=== PATIENT | male | born 1950 | race Caucasian/White ===

== ENCOUNTER 2017-02-01 07:54 | Day surgery (SDC) | payer BC ==
[2017-01-28 08:43] VITALS: BMI 33.7
[~2017-02-01 07:54] MED LIST: LACTATED RINGERS 1,000 ML IV SCH; LIDOCAINE 1% 20 ML VIAL (10MG/ML) FOR IV START INTRADERMA PRN
[2017-02-01] MEDS ORDERED: LACTATED RINGERS 1,000 ML IV ONE (08:04)
[2017-02-01 08:08] VITALS: TEMP 97
[2017-02-01] MEDS ORDERED: PROPOFOL 10 MG/ML 20 ML VIAL IV ONE (08:12)
[2017-02-01] MEDS ORDERED: LIDOCAINE 1% INJ 10MG/ML (20 ML MDV) ONE (08:12)
--- NOTE | 2017-02-01 08:39 | P.PCN ---
Date of Procedure: 02/01/17 Preoperative Diagnosis: Patient history of colon polyps status post cecal resection Postoperative Diagnosis: Small polypoid lesion at the area of the anastomosis, prominent sigmoid diverticuli, internal hemorrhoids, anterior skin tag Procedure(s) Performed: Colonoscopy, snare polypectomy Anesthesia: MAC Surgeon: Estelle Medina Estimated Blood Loss (ml): 0 IV fluids (ml): 400 Pathology: other (Anastomotic polyp) Condition: stable Disposition: PACU Indications for Procedure: Patient history of colon polyps Operative Findings: Small polypoid change at anastomosis, sigmoid diverticuli, internal hemorrhoids , anterior rectal skin tag Description of Procedure: The patient was taken to the endoscopy suite and following sedation rectal exam was performed. Patient was noted to have an prominent anterior skin tag no masses. Colonoscope was passed through the anus into the rectum was passed into the sigmoid colon up to the splenic flexure transverse colon, to what was believed to be near the hepatic flexure and very close to this area was the anastomosis. The anastomosis was clearly evaluated there was a small polypoid change at the anastomosis this was removed with snare polypectomy. Following this the scope was carefully withdrawn no other mucosal lesions of concern were identified in the remainder of the colon. This was brought back to the transverse colon left colon sigmoid colon down to the area of the rectum. The patient was noted to have sigmoid diverticuli. The scope was brought down into the rectum where it was retroflexed internal hemorrhoids identified. Approximately 6 minutes were taken to withdraw the scope from the area of the anastomosis to the cecum. Impression/plan: 1. Anastomotic polyp removed with snare polypectomy 2. Cecal diverticuli 3. Internal hemorrhoids 4. Anterior perianal skin tag Plan: 1. Await results of biopsy 2. Conservative management of diverticuli and hemorrhoids
--- NOTE | 2017-02-01 08:40 | P.DS ---
Providers Attending physician: Estelle Medina Primary care physician: Maico Smart Plan - Discharge Summary Discharge Medication List Aspirin 81 mg PO DAILY 09/16/14 [History] Follow up Appointment(s)/Referral(s): Estelle Medina MD [STAFF PHYSICIAN] - 1 Week Activity/Diet/Wound Care/Special Instructions: Do not drive today Discharge Disposition: HOME SELF-CARE
[2017-02-01 08:47] VITALS: RESP 16
[2017-02-01 09:11] VITALS: BP 130/75; PULSE 72
== END 2017-02-01 09:24 | disposition home or self-care (01) ==
LOC: ORWHC2ENDO 07:54
PROVIDERS: ATTEND Surgery
DX: Z12.11 Encounter for screening for malignant neoplasm of colon (principal); D12.6 Benign neoplasm of colon, unspecified; Z86.010 Personal history of colon polyps; K64.8 Other hemorrhoids; K64.4 Residual hemorrhoidal skin tags; K57.30 Diverticulosis of large intestine without perforation or abscess without bleeding; Z98.0 Intestinal bypass and anastomosis status; Z79.82 Long term (current) use of aspirin
CPT/HCPCS: 88305; 45385; J2001; J2704

== ENCOUNTER 2022-09-08 07:43 | Day surgery (SDC) | payer BC ==
--- NOTE | 2022-09-08 07:34 | P.GSHP ---
History of Present Illness H&P Date: 09/08/22 CHIEF COMPLAINT: Colon screen HISTORY OF PRESENT ILLNESS: The patient is a 71-year-old male who presents for colon screen. Lower endoscopy was offered for further evaluation and management. PAST MEDICAL HISTORY: Please see list. PAST SURGICAL HISTORY: Please see list. MEDICATIONS: Please see list. ALLERGIES: Please see list. SOCIAL HISTORY: No illicit drug use FAMILY HISTORY: No reports of Crohn disease or ulcerative colitis. REVIEW OF ORGAN SYSTEMS: CONSTITUTIONAL: No reports of fevers or chills. PHYSICAL EXAM: VITAL SIGNS: Stable GENERAL: Well-developed pleasant in no acute distress. HEENT: No scleral icterus. Extraocular movements grossly intact. Moist buccal mucosa. NECK: Supple without lymphadenopathy. CHEST: Unlabored respirations. Equal bilateral excursions. CARDIOVASCULAR: Regular rate and rhythm. Distal 2+ pulses. ABDOMEN: Soft, nontender, nondistended. MUSCULOSKELETAL: No clubbing, cyanosis, or edema. ASSESSMENT: 1. Colon screen. PLAN: 1. Recommend proceeding with a lower endoscopy Past Medical History Additional Past Medical History / Comment(s): HX OF COLON POLYPS History of Any Multi-Drug Resistant Organisms: None Reported Past Surgical History: Bowel Resection Additional Past Surgical History / Comment(s): colonoscopies, cecum removed 2012 Past Anesthesia/Blood Transfusion Reactions: No Reported Reaction Smoking Status: Former smoker - Past Family History Mother Family Medical History: No Reported History Medications and Allergies Home Medications Medication Instructions Recorded Confirmed Type Aspirin 81 mg PO DAILY 09/16/14 09/07/22 History Allergies Allergy/AdvReac Type Severity Reaction Status Date / Time No Known Allergies Allergy Verified 09/07/22 11:11
[~2022-09-08 07:43] MED LIST changes: -LIDOCAINE 1% 20 ML VIAL (10MG/ML) FOR IV START INTRADERMA PRN
[2022-09-08] MEDS ORDERED: LACTATED RINGERS 1,000 ML IV ONE (08:15)
[2022-09-08 08:25] VITALS: RESP 16; TEMP 97.5
[2022-09-08] MEDS ORDERED: PROPOFOL 10 MG/ML 20 ML VIAL IV ONE (08:45)
[2022-09-08] MEDS ORDERED: LIDOCAINE 2% INJ 20 MG/ML (2 ML VIAL) ONE (08:45)
[2022-09-08 09:52] VITALS: BP 154/93; PULSE 70
--- NOTE | 2022-09-08 10:04 | P.PCN ---
Date of Procedure: 09/08/22 Description of Procedure: PREOPERATIVE DIAGNOSIS: Personal history of colon polyps POSTOPERATIVE DIAGNOSIS: Tubular adenoma hepatic flexure Tubular adenoma transverse colon Tubular adenoma sigmoid colon Tubular adenoma descending colon Tubular adenoma ascending colon Sigmoid diverticulosis Internal hemorrhoids, grade 2 Hepatic flexure adenoma, unresectable OPERATION: Colonoscopy to the ileocecal valve and appendiceal orifice, cecum Colonoscopy with hot snare polypectomy Colonoscopy with injection of Christal ink, 5 mL, hepatic flexure SURGEON: Neeta Pearson MD. ANESTHESIA: MAC. INDICATIONS: The patient is an 71-year-old male who presents personal history of colon polyps. Last colonoscopy 5 years. Benefits and risks were described and informed consent was obtained. DESCRIPTION OF PROCEDURE: The patient had undergone Sutab prep. The patient had been brought into the operating room and laid in the left lateral decubitus position. After adequate intravenous sedation, the rectum was examined with 2% lidocaine jelly. The prostate was unremarkable. External hemorrhoids were encountered. The rectal tone was within normal limits. No lesions were palpated in the rectal vault. An Olympus colonoscope was advanced until the cecum, ileocecal valve and appendiceal orifice were clearly viewed. The prep was good. Sigmoid diverticulosis was encountered. Colonic polyps were found and removed. No evidence of focal colitis was found. Retroflexion of the scope demonstrated grade 3 internal hemorrhoids without active bleeding or inflammation. The colon was desufflated. The patient had tolerated the procedure well. Withdrawal time was over 6 minutes. FINDINGS: Aronchick preparation quality scale 2 (1-5) Internal hemorrhoids, grade 3 External hemorrhoids, grade 3. No arteriovenous malformations. Sigmoid diverticulosis Injection Christal ink at hepatic flexure, 5 mL, 3 cm adenoma, unresectable Removal of 12 polyps: - Snare polypectomy 15 cm from the anal verge, 5 mm tubulovillous adenoma polyp, sigmoid colon - Snare polypectomy 25 cm from the anal verge, 13 mm flat villous adenoma polyp, sigmoid colon - Snare polypectomy 50 cm from the anal verge, 12 mm flat villous adenoma polyp, descending colon - Snare polypectomy 60 cm from the anal verge, 8 mm polyp, descending colon - Snare polypectomy at proximal transverse x 2, 5 to 6 mm polyp. - Snare polypectomy at mid transverse colon 4, 4 to 10 mm polyp. - Snare polypectomy at ascending colon, 8 mm polyp. - Snare polypectomy at hepatic flexure, piecemeal resection, incomplete, 30 mm tumor No focal colitis. RECOMMENDATIONS: Recommend surgical resection, hepatic flexure Plan - Discharge Summary Discharge Rx Participant: No New Discharge Prescriptions: Continue Aspirin 81 mg PO DAILY Discharge Medication List Aspirin 81 mg PO DAILY 09/16/14 [History] Follow up Appointment(s)/Referral(s): Neeta Pearson MD [STAFF PHYSICIAN] - 09/21/22 Patient Instructions/Handouts: *Surgery [facility] - (Anesthesia) Endoscopy Discharge Instructions, Colorectal Polyps (GEN), Colonoscopy (DC) Activity/Diet/Wound Care/Special Instructions: Follow up in surgical office Discharge Disposition: HOME SELF-CARE
== END 2022-09-08 10:28 | disposition home or self-care (01) ==
LOC: ORWHC2ENDO 07:43
PROVIDERS: ATTEND Surgery Plastic and Reconstructive Surgery
DX: Z12.11 Encounter for screening for malignant neoplasm of colon (principal); D12.2 Benign neoplasm of ascending colon; D12.3 Benign neoplasm of transverse colon; D12.4 Benign neoplasm of descending colon; D12.5 Benign neoplasm of sigmoid colon; K57.30 Diverticulosis of large intestine without perforation or abscess without bleeding; K64.8 Other hemorrhoids; Z79.82 Long term (current) use of aspirin; Z87.891 Personal history of nicotine dependence; Z87.19 Personal history of other diseases of the digestive system
CPT/HCPCS: 88305; 45385; 45381; J2704; J2001

== ENCOUNTER → 2023-03-09 | Day surgery (SDC) | payer BC ==
[2023-03-04 12:41] VITALS: BMI 34.1
[~2023-03-09] MED LIST changes: +LIDOCAINE 1% (10MG/ML) FOR IV START INTRADERMA PRN; +ONDANSETRON 4 MG/2 ML VIAL IVP PRN; +PROPOFOL 10 MG/ML 20 ML VIAL IV ONE
--- NOTE | 2023-03-09 07:39 | P.GSHP ---
History of Present Illness H&P Date: 03/09/23 CHIEF COMPLAINT: Colon screen HISTORY OF PRESENT ILLNESS: The patient is a 72-year-old male who presents for colon screen. Lower endoscopy was offered for further evaluation and management. PAST MEDICAL HISTORY: Please see list. PAST SURGICAL HISTORY: Please see list. MEDICATIONS: Please see list. ALLERGIES: Please see list. SOCIAL HISTORY: No illicit drug use FAMILY HISTORY: No reports of Crohn disease or ulcerative colitis. REVIEW OF ORGAN SYSTEMS: CONSTITUTIONAL: No reports of fevers or chills. PHYSICAL EXAM: VITAL SIGNS: Stable GENERAL: Well-developed pleasant in no acute distress. HEENT: No scleral icterus. Extraocular movements grossly intact. Moist buccal mucosa. NECK: Supple without lymphadenopathy. CHEST: Unlabored respirations. Equal bilateral excursions. CARDIOVASCULAR: Regular rate and rhythm. Distal 2+ pulses. ABDOMEN: Soft, nontender, nondistended. MUSCULOSKELETAL: No clubbing, cyanosis, or edema. ASSESSMENT: 1. Colon screen. PLAN: 1. Recommend proceeding with a lower endoscopy Past Medical History Additional Past Medical History / Comment(s): HX OF COLON POLYPS History of Any Multi-Drug Resistant Organisms: None Reported Past Surgical History: Bowel Resection Additional Past Surgical History / Comment(s): colonoscopies, cecum removed 2012 Past Anesthesia/Blood Transfusion Reactions: No Reported Reaction Past Psychological History: No Psychological Hx Reported Smoking Status: Former smoker Past Alcohol Use History: None Reported Additional Past Alcohol Use History / Comment(s): quit smoking 1978, smoked <10 yrs. Past Drug Use History: None Reported - Past Family History Mother Family Medical History: No Reported History Medications and Allergies Home Medications Medication Instructions Recorded Confirmed Type Aspirin 81 mg PO HS 09/16/14 03/04/23 History Allergies Allergy/AdvReac Type Severity Reaction Status Date / Time No Known Allergies Allergy Verified 03/04/23 12:36
[2023-03-09 09:11] VITALS: TEMP 97
[2023-03-09 10:09] VITALS: RESP 15
[2023-03-09 10:27] VITALS: BP 162/97; PULSE 68
--- NOTE | 2023-03-09 10:28 | P.PCN ---
Date of Procedure: 03/09/23 Description of Procedure: PREOPERATIVE DIAGNOSIS: Right hemicolectomy due to adenoma Personal history of colon polyps Large adenoma, hepatic flexure POSTOPERATIVE DIAGNOSIS: Tubular adenoma hepatic flexure Tubular adenoma transverse colon Tubular adenoma descending colon Tubular adenoma ascending colon Sigmoid diverticulosis Internal hemorrhoids, grade 2 Hepatic flexure adenoma, unresectable OPERATION: Colonoscopy to the ileocecal valve and appendiceal orifice, cecum Colonoscopy with hot snare polypectomy Colonoscopy with injection of Christal ink, 4 mL, hepatic flexure SURGEON: Neeta Pearson MD. ANESTHESIA: MAC. INDICATIONS: The patient is an 72-year-old male who presents personal history of colon polyps. He had prior colon resection, right hemicolectomy. Benefits and risks were described and informed consent was obtained. DESCRIPTION OF PROCEDURE: The patient had undergone MiraLAX Gatorade. The patient had been brought into the operating room and laid in the left lateral decubitus position. After adequate intravenous sedation, the rectum was examined with 2% lidocaine jelly. The prostate was unremarkable. External hemorrhoids were encountered. The rectal tone was within normal limits. No lesions were palpated in the rectal vault. An Olympus colonoscope was advanced until the cecum, ileocecal valve and appendiceal orifice were clearly viewed. The prep was good. Sigmoid diverticulosis was encountered. Colonic polyps were found and removed. No evidence of focal colitis was found. Retroflexion of the scope demonstrated grade 3 internal hemorrhoids without active bleeding or inflammation. The colon was desufflated. The patient had tolerated the procedure well. Withdrawal time was over 6 minutes. FINDINGS: Aronchick preparation quality scale 2 (1-5) Internal hemorrhoids, grade 3 External hemorrhoids, grade 3. No arteriovenous malformations. Sigmoid diverticulosis Injection Christal ink at hepatic flexure, 4 mL, flat 2 cm adenoma, unresectable Removal of 7 polyps: - Snare polypectomy anastomosis, 5 mm tubulovillous adenoma of right hemicolectomy - Snare polypectomy transverse colon 4, 4-6 mm flat villous adenoma - Snare polypectomy descending colon, 5 mm flat villous adenoma - Snare polypectomy at hepatic flexure, piecemeal resection, incomplete, 20 mm tumor No focal colitis. RECOMMENDATIONS: Recommend surgical resection, hepatic flexure Plan - Discharge Summary Discharge Rx Participant: No New Discharge Prescriptions: Continue Aspirin 81 mg PO HS Discharge Medication List Aspirin 81 mg PO HS 11/03/14 [History] Follow up Appointment(s)/Referral(s): Neeta Pearson MD [STAFF PHYSICIAN] - 03/22/23 3:45 pm Patient Instructions/Handouts: Diverticulosis (DC), Colorectal Polyps (GEN), Diverticulosis Diet (GEN) Activity/Diet/Wound Care/Special Instructions: Repeat colonoscopy 1 year, 2023. Recommend colon resection Discharge Disposition: HOME SELF-CARE
[2023-03-09 12:49] LABS: ALT 47 U/L (4-49); AST 37 U/L (17-59); Alkaline Phosphatase 100 U/L (38-126); Anion Gap 8 mmol/L; Calcium 8.7 mg/dL (8.4-10.2); Carbon Dioxide 31 mmol/L (22-30); Chloride 102 mmol/L (98-107); Glucose 101 mg/dL (74-99); Potassium 4.7 mmol/L (3.5-5.1); Sodium 141 mmol/L (137-145); Total Bilirubin 1.5 mg/dL (0.2-1.3)
[2023-03-09 12:52] LABS: African American GFR (CKD) >90 (>60 ml/min/1.73 sqM); Albumin 4.2 g/dL (3.5-5.0); Blood Urea Nitrogen 14 mg/dL (9-20); Non-African American GFR(CKD) >90 (>60 ml/min/1.73 sqM); Total Protein 6.8 g/dL (6.3-8.2)
[2023-03-09 13:14] LABS: Basophils % (A) 0 %; Eosinophils # (A) 0.2 k/uL (0-0.7); Eosinophils % (A) 3 %; HCT 47.3 % (39.0-53.0); HGB 16.2 gm/dL (13.0-17.5); Lymphocytes # (A) 1.5 k/uL (1.0-4.8); Lymphocytes % (A) 24 %; MCH 31.8 pg (25.0-35.0); MCHC 34.4 g/dL (31.0-37.0); MCV 92.4 fL (80.0-100.0); Mean Platelet Volume 8.1; Monocytes # (A) 0.3 k/uL (0-1.0); Monocytes % (A) 5 %; Neutrophils # (A) 4.2 k/uL (1.3-7.7); Neutrophils % (A) 66 %; Platelet Count 216 k/uL (150-450); RBC 5.11 m/uL (4.30-5.90); RDW 13.6 % (11.5-15.5); WBC 6.4 k/uL (3.8-10.6)
== END | disposition home or self-care (01) ==
LOC: ORWHC2ENDO 08:42
PROVIDERS: ATTEND Surgery Plastic and Reconstructive Surgery
DX: Z12.11 Encounter for screening for malignant neoplasm of colon (principal); D12.3 Benign neoplasm of transverse colon; D12.4 Benign neoplasm of descending colon; Z90.49 Acquired absence of other specified parts of digestive tract; K57.30 Diverticulosis of large intestine without perforation or abscess without bleeding; K64.2 Third degree hemorrhoids; K64.4 Residual hemorrhoidal skin tags; Z79.82 Long term (current) use of aspirin; Z98.0 Intestinal bypass and anastomosis status; Z87.891 Personal history of nicotine dependence
CPT/HCPCS: 45385; 45381; 88305; 80053; 85025; J2704; 44404; 45380

== ENCOUNTER → 2023-03-29 | Outpatient (CLI) | payer BC | END | disposition home or self-care (01) | LOC: LABPAT 15:48 | PROVIDERS: ATTEND Surgery Plastic and Reconstructive Surgery | DX: Z53.9 Procedure and treatment not carried out, unspecified reason (principal) ==

== ENCOUNTER 2023-04-01 05:48 | Inpatient (IN) | payer BC, MEDICARE ==
[2023-03-29 08:56] VITALS: BMI 32.7
--- NOTE | 2023-03-31 18:52 | P.PN ---
Progress Note - Text Progress Note Date: 03/31/23 Patient contacted regarding his prep. He does report vomiting his first dose. He is taken his antibiotics for Plata prep. Recommend oral hydration. Options of pain management including abdominal block described. Patient is aware what time he is to come in tomorrow. All questions addressed.
--- NOTE | 2023-04-01 05:11 | P.GSHP ---
History of Present Illness H&P Date: 04/01/23 CHIEF COMPLAINT: History of sigmoid volvulus HISTORY OF PRESENT ILLNESS: The patient is a 72-year-old male who presents with unresectable adenoma of the hepatic flexure/right colon after several attempts via endoscopy in the 9 months. He completed a colonoscopy demonstrating neoplasm. Now he presents for right mark-colectomy resection. PAST MEDICAL HISTORY: Please see list. PAST SURGICAL HISTORY: Please see list. MEDICATIONS: Please see list. ALLERGIES: Please see list. SOCIAL HISTORY: No illicit drug use FAMILY HISTORY: No reports of Crohn disease or ulcerative colitis. REVIEW OF ORGAN SYSTEMS: CONSTITUTIONAL: Denies any fever or chills. HEENT: Denies any trouble with vision or nosebleeds. No difficulty swallowing. LYMPHATIC: The patient denies any lumps and bumps around the neck. ENDOCRINE: Denies any thyroid disorders. Has blood sugar glucose intolerance. RESPIRATORY: Denies pneumonia. Denies any troubles with breathing or dyspnea on exertion. CARDIOVASCULAR: Denies any chest pain, palpitations, or recent heart attacks. EKG normal. GASTROINTESTINAL: Denies constipation. GENITOURINARY: Has increased urinary frequency. MUSCULOSKELETAL: Denies back pain, stiffness, joint arthritis. NEUROLOGIC: Denies any numbness or tingling along the distal extremities. No seizure disorders or headaches. PSYCHIATRIC: Denies depression or suidical ideation. HEMATOLOGIC: Denies any abnormal bleeding or bruising. PHYSICAL EXAM: VITAL SIGNS: Stable GENERAL: Well-developed pleasant in no acute distress. HEENT: No scleral icterus. Extraocular movements grossly intact. Moist buccal mucosa. NECK: Supple without lymphadenopathy. CHEST: Unlabored respirations. Equal bilateral excursions. CARDIOVASCULAR: Regular rate and rhythm. Distal 2+ pulses. ABDOMEN: Soft, nontender, nondistended. MUSCULOSKELETAL: No clubbing, cyanosis, or edema. NERUO: Regular 2-12 grossly intact. PSYCH: Alert and oriented to person place and time. ASSESSMENT: 1. Unresectable colon adenoma, hepatic flexure. PLAN: 1. Benefits and risks of surgical intervention right colectomy reviewed in detail. Robotic-assisted approach was also described. Possibility of open technique described. 2. Enhanced colon recovery program. 3. DVT prophylaxis. 4. Antibiotic prophylaxis. 5. In-patient hospitalization described. Past Medical History Additional Past Medical History / Comment(s): HX OF COLON POLYPS. History of Any Multi-Drug Resistant Organisms: None Reported Past Surgical History: Bowel Resection Additional Past Surgical History / Comment(s): Colonoscopies, cecum removed 2012. Past Anesthesia/Blood Transfusion Reactions: No Reported Reaction Past Psychological History: No Psychological Hx Reported Smoking Status: Former smoker Past Alcohol Use History: None Reported Additional Past Alcohol Use History / Comment(s): Quit smoking in 1978, smoked <10 yrs. Past Drug Use History: None Reported - Past Family History Mother Family Medical History: No Reported History Medications and Allergies Home Medications Medication Instructions Recorded Confirmed Type Aspirin 81 mg PO HS 09/16/14 03/29/23 History Vit C/E/Zn/Coppr/Lutein/Zeaxan 1 each PO DAILY 03/29/23 03/29/23 History [Preservision Areds 2 Softgel] Allergies Allergy/AdvReac Type Severity Reaction Status Date / Time No Known Allergies Allergy Verified 03/29/23 08:45
[~2023-04-01 05:48] MED LIST changes: +ACETAMINOPHEN TAB 500 MG TAB PO PRN; +ALVIMOPAN 12 MG CAPSULE PO PRN; +Antibiotics per Pharmacy 1 EACH MISC MISCELLANE PRN; +HEPARIN SODIUM,PORCINE/PF 5,000 UNIT/0.5 ML SYRINGE SQ PRN; -LACTATED RINGERS 1,000 ML IV SCH; -LIDOCAINE 1% (10MG/ML) FOR IV START INTRADERMA PRN; -PROPOFOL 10 MG/ML 20 ML VIAL IV ONE; +metroNIDAZOLE-NS PMX 500 MG in SALINE 1 100ML.BAG IVPB PRN
[2023-04-01] MEDS ORDERED: MIDAZOLAM 2 MG/2 ML VIAL IV PRN (05:55)
[2023-04-01] MEDS: LACTATED RINGERS 1,000 ML IV SCH (06:40)
[2023-04-01 06:43] LABS: Glucose,Whole Blood 111 mg/dL (70-110)
[2023-04-01] MEDS ORDERED: HYDROmorphone 0.5 MG/0.5 ML SYRINGE IVP PRN (07:00)
[2023-04-01] MEDS ORDERED: MIDAZOLAM 2 MG/2 ML VIAL IVP ONE (07:05)
[2023-04-01] MEDS ORDERED: fentaNYL (PF) 50 MCG/ML 2 ML AMP IVP ONE (07:05)
[2023-04-01 07:08] LABS: Basophils % (A) 0 %; Eosinophils # (A) 0.1 k/uL (0-0.7); Eosinophils % (A) 1 %; HCT 47.1 % (39.0-53.0); HGB 16.5 gm/dL (13.0-17.5); Lymphocytes # (A) 1.4 k/uL (1.0-4.8); Lymphocytes % (A) 18 %; MCHC 35.1 g/dL (31.0-37.0); MCV 91.1 fL (80.0-100.0); Mean Platelet Volume 7.8; Monocytes # (A) 0.5 k/uL (0-1.0); Monocytes % (A) 7 %; Neutrophils # (A) 5.4 k/uL (1.3-7.7); Neutrophils % (A) 71 %; Platelet Count 214 k/uL (150-450); RBC 5.17 m/uL (4.30-5.90); WBC 7.6 k/uL (3.8-10.6)
[2023-04-01] MEDS ORDERED: DEXAMETHASONE SOD PHOSPHATE 4 MG/ML 1 ML VIAL IVP ONE (07:20)
[2023-04-01 07:37] LABS: ALT 32 U/L (4-49); African American GFR (CKD) >90 (>60 ml/min/1.73 sqM); Albumin 4.4 g/dL (3.5-5.0); Anion Gap 14 mmol/L; Blood Urea Nitrogen 20 mg/dL (9-20); Calcium 8.8 mg/dL (8.4-10.2); Carbon Dioxide 25 mmol/L (22-30); Chloride 102 mmol/L (98-107); Glucose 112 mg/dL (74-99); Non-African American GFR(CKD) >90 (>60 ml/min/1.73 sqM); Sodium 141 mmol/L (137-145); Total Bilirubin 1.7 mg/dL (0.2-1.3); Total Protein 7.5 g/dL (6.3-8.2)
[2023-04-01] MEDS ORDERED: LIDOCAINE 2% INJ 20 MG/ML (2 ML VIAL) ONE (07:38)
[2023-04-01] MEDS ORDERED: ROPIVACAINE 5 MG/ML 30 ML VIAL ONE (07:38)
[2023-04-01] MEDS ORDERED: SUCCINYLCHOLINE CHLORIDE 200 MG/10 ML VIAL IV ONE (07:38)
[2023-04-01] MEDS ORDERED: FUROSEMIDE 10 MG/ML 2 ML VIAL ONE (07:38)
[2023-04-01] MEDS ORDERED: NEOSTIGMINE 1 MG/ML 10 ML VIAL ONE (07:38)
[2023-04-01] MEDS ORDERED: KETAMINE 10 MG/ML 20 ML VIAL ONE (07:38)
[2023-04-01] MEDS ORDERED: fentaNYL (PF) 50 MCG/ML 2 ML AMP ONE (07:38)
[2023-04-01] MEDS ORDERED: PROPOFOL 10 MG/ML 20 ML VIAL IV ONE (07:38)
[2023-04-01] MEDS ORDERED: MIDAZOLAM 2 MG/2 ML VIAL ONE (07:38)
[2023-04-01] MEDS ORDERED: GLYCOPYRROLATE 0.2 MG/ML 2 ML VIAL ONE (07:38)
[2023-04-01] MEDS ORDERED: ROCURONIUM 10 MG/ML (5 ML VIAL) IV ONE (07:38)
[2023-04-01] MEDS ORDERED: SODIUM CHLORIDE 0.9% (PF) 10 ML VIAL ONE (07:38)
[2023-04-01] MEDS ORDERED: HYDROmorphone (PF) 1 MG/ML ONE (07:38)
[2023-04-01] MEDS ORDERED: PHENYLEPHRINE-0.9% NACL SYG 1,000 MCG/10 ML SYRINGE ONE (07:38)
[2023-04-01 07:39] LABS: AST 34 U/L (17-59); Alkaline Phosphatase 72 U/L (38-126)
[2023-04-01] MEDS ORDERED: IV FLUID CONTINUATION 1,000 ML IV ONE ×2 (07:43→08:57)
[2023-04-01] MEDS ORDERED: BUPIVACAINE (PF) 0.25% 30 ML VIAL SQ ONE (08:22)
--- NOTE | 2023-04-01 10:15 | P.ANPRN ---
Procedure Note - Anesthesia - Nerve Block Performed Bilateral Erector Spinae Time Out Performed: Yes (07:05) Date of Procedure: 04/01/23 Procedure Start Time: :05 Procedure Stop Time: 07:11 Location of Patient: PreOp Indication: Acute Post-Operative Pain, Requested by Surgeon (Dr Mansfield) Sedation Type: Sedate with meaningful contact maintained Preparation: Sterile Prep Position: Prone Catheter: None Needle Types: Pajunk Needle Gauge: 21 Ultrasound used to visualize needle placement: Yes Ultrasound used to observe medication spread: Yes Injectate: 0.5% Ropivacaine (see comment for volume) (15cc +10cc PF Normal saline each side) Blood Aspirated: No Pain Paresthesia on Injection Noted: No Resistance on Injection: Normal Image Stored and Saved: Yes Events: Uneventful and Well Tolerated
[2023-04-01] MEDS ORDERED: SODIUM CHLORIDE 0.9% 100 ML BAG ONE (12:15)
[2023-04-01] MEDS ORDERED: ceFAZolin 1,000 MG VIAL ONE (12:15)
[2023-04-01] MEDS ORDERED: fentaNYL PCA 500 MCG/50 ML BAG IV PRN (13:26)
[2023-04-01] MEDS ORDERED: NALOXONE 0.4 MG/ML 1 ML VIAL IV PRN (13:26)
[2023-04-01] MEDS ORDERED: ONDANSETRON 4 MG/2 ML VIAL IVP ONE (13:38)
[2023-04-01] MEDS ORDERED: droPERidol 5 MG/2 ML VIAL IVP ONE (13:49)
--- NOTE | 2023-04-01 13:52 | P.OP ---
Date of Procedure: 04/01/23 Description of Procedure: SURGEON: BRITTANY MARADIAGA MD Preoperative Diagnosis: 1. Hepatic flexure unresectable adenoma 2. Obesity due to excess calories, BMI 32.3 3. Prior right colectomy for unresectable adenoma of the cecum Postoperative Diagnosis: 1. Hepatic flexure unresectable adenoma 2. Obesity due to excess calories, BMI 32.3 3. Prior right colectomy for unresectable adenoma of the cecum 4. Abdominal peritoneal adhesions Procedure(s) Performed: 1. Robot-assisted daVinci Xi laparoscopic lysis of adhesions over 1.5 hours 2. Robot-assisted daVinci Xi laparoscopic extended right hemicolectomy 3. Robot-assisted daVinci Xi laparoscopic small bowel resection 2 Anesthesia: GETA, local Estimated Blood Loss (ml): 5 Condition: stable Urine output: 400 mL SPECIMENS REMOVED: 1. Extended right colon en bloc, anastomosis 2. Small bowel resection 2, ileum COMPLICATIONS: None. Disposition: floor Operative Findings: 1. Tattoo identified along the hepatic flexure 2. More than 3 cm border obtained from tattoo dye for resection 3. No peritoneal metastases identified 4. Extended right hemicolectomy to mid transverse colon 5. Highly redundant hepatic flexure 6. Moderate right lower quadrant mid-abdominal adhesions due to prior colectomy requiring 1.5 hours distended lysis of adhesions 7. Small bowel resection 2 for ischemia 8. Tension-free anastomosis, antiperistaltic side to side 9. Incision, left upper quadrant 4 cm form of large specimen INDICATIONS: The patient is a 72-year-old male who presents with hepatic flexure unresectable adenoma. Surgical intervention with colon resection was described in detail. Benefits and risks, including infection, open surgery possibility for additional surgery was discussed at length. Informed consent was obtained. All questions of the patient and family were answered. DESCRIPTION: Earlier the patient had undergone a bowel prep using the enhanced colon recovery program. No epidural was used secondary to pre-existing hypotension. The patient was transferred to the operating room and placed in supine position. After general anesthetic, a mir catheter was placed. The abdomen was then prepped and draped in standard sterile fashion as Ioban was placed along the abdomen to minimize any contamination of skin floor. After a timeout protocol was performed, attention was then brought to the left upper quadrant whereby a 0 degree 5 mm laparoscopic trocar entry was performed. The abdominal cavity was entered and insufflated to 15 mmHg pressure, which was tolerated well. Diagnostic laparoscopy demonstrated no injury to bowel, viscera or mesentery. The liver was remarkable for hepatomegaly. Next trochars were placed along the left lateral abdomen. An robotic 8-mm trocar to the left lower abdomen. A 12 mm port was placed along the left lower quadrant. Another 8-mm port along the left upper quadrant. Ports were placed 8 cm apart from each other including 15-20 cm away from the target anatomy of the right pelvis. The 5-mm port was exchanged for a 12 mm robotic port. The patient was then placed in right side up 7. The robotic da Dayan XI system was primed and docked from the left side of the patient. Using atraumatic graspers and vessel sealer, the robotic system was docked and primed as described. Instruments were interchanged by the assistant guest services manager including scissors, needle roll off driver, robotic stapler and vessel sealer. Next, attention was brought to identify the cecum. A stay suture using 0 silk was placed along the anterior serosa of the along the terminal ileum. The terminal ileum and ascending colon mesentery was mobilized using a vessel sealer whereby the colon was marked and tagged. Tattoo was identified along the mid ascending colon. The colon was prepared for resection along the mid transverse colon including for resection along the terminal ileum. Using robot stapler 60 mm white load, the distal ileum was divided 8 centimeters proximal to the ileocecal valve. The mesentery of the ascending colon was mobilized towards the midline using a vessel sealer. The right colon was mobilized to the mid transverse colon and prepared for resection. The colon was divided using 60 mm blue loads. The rest of the colon mesentery was mobilized using vessel sealer including using blunt dissection. The ascending colon was mobilized from proximal to distal with the meeting point of the hepatic flexure. The vascular pedicle of the ileocolic artery was controlled using vessel sealer. The mid transverse colon and distal ileum was brought in a side to side antiperistaltic anastomotic fashion after placing interrupted sutures along the proposed marcial-lumen using 3-0 silk. A colotomy and enterotomy was prepared along both limbs along the antimesenteric border. Next, 60 mm blue stapler loads were fired to create the marcial-lumen. The marcial-lumen was reapproximated using 3-0 silk followed by 60 mm blue load for closure of the enterostomy. All needles were removed from the abdominal cavity. The robot was undocked. I re-scrubbed into the case. Via the 12 mm port of the left upper quadrant, the right colon was removed after widening the skin incision to 3-cm using 15-mm Endo Catch bag. All sponges were removed from the abdominal cavity. The fascial defect was oversewn using 0 Vicryl and Jimenez Serna. Next all pneumoperitoneum was evacuated from the abdominal cavity. The 8-mm trocar sites were reapproximated using 4-0 Monocryl in an interrupted subcuticular fashion. Local anesthetic was infiltrated to all wounds for postop analgesia. All incisions were also cleansed with diluted hydrogen peroxide. Liquid was applied to the rest of the skin incisions. The patient had tolerated the procedure well. The patient was extubated successfully. Intraoperative photos were reviewed with the patient's family who were overall pleased with the level of care. The patient was transferred to the postanesthesia care unit in stable condition.
[2023-04-01] MEDS: KETOROLAC 15 MG/ML 1 ML VIAL IVP SCH ×3 (13:56→23:59)
[2023-04-01] MEDS: SODIUM CHLORIDE 0.9% 1,000 ML IV SCH ×2 (14:49→21:05)
[2023-04-01] MEDS: METOCLOPRAMIDE 5 MG/ML 2 ML VIAL IVP SCH ×2 (18:02→23:59)
[2023-04-01] MEDS: ONDANSETRON 4 MG/2 ML VIAL IVP SCH ×2 (18:02→23:58)
[2023-04-01] MEDS ORDERED: ASPIRIN 81 MG PO SCH (21:00)
[2023-04-01] MEDS: TAMSULOSIN 0.4 MG CAP.ER.24H PO SCH (21:05)
[2023-04-01] MEDS ORDERED: HYDROmorphone 1 MG/ML 1 ML SYRINGE IVP PRN (22:39)
[2023-04-01] MEDS ORDERED: fentaNYL PCA 500 MCG/50 ML BAG IV SCH (22:45)
[2023-04-01] MEDS: SIMETHICONE 80 MG CHEWABLE PO SCH (23:56)
[2023-04-01] MEDS: ACETAMINOPHEN TAB 500 MG TAB PO SCH (23:58)
[2023-04-02] MEDS: metroNIDAZOLE-NS PMX 500 MG in SALINE 1 100ML.BAG IVPB SCH ×2 (01:29→08:12)
[2023-04-02] MEDS: SODIUM CHLORIDE 0.9% 1,000 ML IV SCH ×2 (06:35→12:13)
[2023-04-02] MEDS: ACETAMINOPHEN TAB 500 MG TAB PO SCH ×2 (06:36→12:12)
[2023-04-02] MEDS: KETOROLAC 15 MG/ML 1 ML VIAL IVP SCH ×2 (06:36→12:13)
[2023-04-02] MEDS: ONDANSETRON 4 MG/2 ML VIAL IVP SCH ×2 (06:37→12:13)
[2023-04-02] MEDS: METOCLOPRAMIDE 5 MG/ML 2 ML VIAL IVP SCH ×2 (06:37→12:13)
[2023-04-02] MEDS: LACTATED RINGERS 1,000 ML IV SCH (06:39)
[2023-04-02 07:33] VITALS: BP 133/65; PULSE 71; RESP 16; TEMP 97.5
[2023-04-02] MEDS ORDERED: fentaNYL PCA 500 MCG/50 ML BAG IV SCH (08:00)
[2023-04-02] MEDS: TAMSULOSIN 0.4 MG CAP.ER.24H PO SCH (08:12)
[2023-04-02] MEDS: SIMETHICONE 80 MG CHEWABLE PO SCH (08:12)
[2023-04-02] MEDS ORDERED: ALVIMOPAN 12 MG CAPSULE PO SCH (09:00)
--- NOTE | 2023-04-02 10:59 | P.DS ---
Providers Date of admission: 04/01/23 05:48 Expected date of discharge: 04/02/23 Attending physician: Neeta Pearson Consults: 04/01/23 05:18 Consult Physician Routine Consulting Provider: [facility] Consult Reason/Comments: Regional block Do you want consulting provider notified?: Yes Primary care physician: Maico Smart [facility] Course: Patient doing quite well today. Denies any significant abdominal pain. No nausea or vomiting. Tolerating diet. He has ambulated. He is voiding. He would like to try to go home today. Incisions are clean and dry with dressings in place, minimal tenderness, nondistended. Will plan discharge. Follow-up with Dr. Robert next week. Plan - Discharge Summary Discharge Rx Participant: No New Discharge Prescriptions: New Acetaminophen Tab [Tylenol Tab] 1,000 mg PO Q6HR PRN #30 tablet PRN Reason: Pain Cyclobenzaprine [Flexeril] 10 mg PO TID #30 tab Ibuprofen [Motrin] 600 mg PO Q8HR PRN #30 tab PRN Reason: Pain Continue Aspirin 81 mg PO HS Vit C/E/Zn/Coppr/Lutein/Zeaxan [Preservision Areds 2 Softgel] 1 each PO DAILY Discharge Medication List Aspirin 81 mg PO HS 09/16/14 [History] Vit C/E/Zn/Coppr/Lutein/Zeaxan [Preservision Areds 2 Softgel] 1 each PO DAILY 03/29/23 [History] Acetaminophen Tab [Tylenol Tab] 1,000 mg PO Q6HR PRN #30 tablet 04/01/23 [Rx] Cyclobenzaprine [Flexeril] 10 mg PO TID #30 tab 04/01/23 [Rx] Ibuprofen [Motrin] 600 mg PO Q8HR PRN #30 tab 04/01/23 [Rx] Follow up Appointment(s)/Referral(s): Neeta Pearson MD [STAFF PHYSICIAN] - 04/05/23 (TELEHEALTH - WILL CALL YOU BETWEEN 8 am to 6 pm ) Patient Instructions/Handouts: *Surgery [facility] - Managing Your Pain After Surgery Without Opioids, Diverticulitis Diet (DC), Colectomy Diet (DC), Laparoscopic Bowel Resection (DC) Activity/Diet/Wound Care/Special Instructions: EXPECT BOWEL MOVEMENT WITH BLOOD FOR 1 WEEK TAKE LAXATIVE FOR CONSTIPATION AFTER 4 DAYS, 04/05/23 Wear abdominal binder for comfort. No lifting over 4 pounds in 4 weeks May 02March shower. No bath tub soaks for two weeks until April 15 Avoid steak, tough meats and seeds such as raspberry seeds. See diverticulitis, low fiber, colectomy diet Use Tylenol and ibuprofen scheduled for the next 24-48 hours for best pain relief. Use ice along incisions for today to prevent swelling. Discharge Disposition: HOME SELF-CARE
== END 2023-04-02 12:32 | disposition home or self-care (01) | DRG 331 ==
LOC: 2ORMAIN 05:48 → 4SSUR 13:56
PROVIDERS: ADMIT Surgery Plastic and Reconstructive Surgery; ATTEND Surgery Plastic and Reconstructive Surgery
PROC: 0DBB4ZZ Excision of Ileum, Percutaneous Endoscopic Approach (ICD-10-PCS; principal; 2023-04-01 07:30)
PROC: 8E0W4CZ Robotic Assisted Procedure of Trunk Region, Percutaneous Endoscopic Approach (ICD-10-PCS; principal; 2023-04-01 07:30)
PROC: 0DTF4ZZ Resection of Right Large Intestine, Percutaneous Endoscopic Approach (ICD-10-PCS; principal; 2023-04-01 07:30)
PROC: 0DNK4ZZ Release Ascending Colon, Percutaneous Endoscopic Approach (ICD-10-PCS; principal; 2023-04-01 07:30)
PROC: 0DBL4ZZ Excision of Transverse Colon, Percutaneous Endoscopic Approach (ICD-10-PCS; principal; 2023-04-01 07:30)
DX: D12.3 Benign neoplasm of transverse colon (principal); I95.9 Hypotension, unspecified; R16.0 Hepatomegaly, not elsewhere classified; K66.0 Peritoneal adhesions (postprocedural) (postinfection); E66.09 Other obesity due to excess calories; Z68.32 Body mass index [BMI] 32.0-32.9, adult; R35.0 Frequency of micturition; Z79.82 Long term (current) use of aspirin; Z79.899 Other long term (current) drug therapy; Z87.891 Personal history of nicotine dependence; Z86.010 Personal history of colon polyps
CPT/HCPCS: 64999; 80053; 85025; 86850; 86900; 86901; 88307

== ENCOUNTER 2024-05-16 06:46 | Day surgery (SDC) | payer BC ==
[2024-05-16 07:15] VITALS: RESP 18; TEMP 97.2
[2024-05-16] MEDS: IV FLUID CONTINUATION 1,000 ML IV ONE (07:25)
[2024-05-16] MEDS: LACTATED RINGERS 1,000 ML IV SCH (07:26)
[2024-05-16] MEDS ORDERED: PROPOFOL 10 MG/ML 20 ML VIAL IV ONE (07:27)
--- NOTE | 2024-05-16 07:31 | P.GSHP ---
History of Present Illness H&P Date: 05/16/24 CHIEF COMPLAINT: History of colon polyps HISTORY OF PRESENT ILLNESS: The patient is a 73-year-old male with history of colon adenoma status post resection. Lower endoscopy was offered for further evaluation and management. PAST MEDICAL HISTORY: Please see list. PAST SURGICAL HISTORY: Please see list. MEDICATIONS: Please see list. ALLERGIES: Please see list. SOCIAL HISTORY: No illicit drug use FAMILY HISTORY: No reports of Crohn disease or ulcerative colitis. REVIEW OF ORGAN SYSTEMS: CONSTITUTIONAL: No reports of fevers or chills. PHYSICAL EXAM: VITAL SIGNS: Stable GENERAL: Well-developed pleasant in no acute distress. HEENT: No scleral icterus. Extraocular movements grossly intact. Moist buccal mucosa. NECK: Supple without lymphadenopathy. CHEST: Unlabored respirations. Equal bilateral excursions. CARDIOVASCULAR: Regular rate and rhythm. Distal 2+ pulses. ABDOMEN: Soft, nontender, nondistended. MUSCULOSKELETAL: No clubbing, cyanosis, or edema. ASSESSMENT: 1. History of colon polyp status post resection PLAN: 1. Recommend proceeding with a lower endoscopy Past Medical History Past Medical History: Skin Disorder Additional Past Medical History / Comment(s): HX OF COLON POLYPS. eczema legs. History of Any Multi-Drug Resistant Organisms: None Reported Past Surgical History: Bowel Resection Additional Past Surgical History / Comment(s): Colonoscopies, cecum removed 2012.due to difficult polyp. 12-13 inches of colon removed -large polyp. Past Anesthesia/Blood Transfusion Reactions: No Reported Reaction Smoking Status: Former smoker - Past Family History Mother Family Medical History: No Reported History Medications and Allergies Home Medications Medication Instructions Recorded Confirmed Type Aspirin 81 mg PO HS 09/16/14 05/16/24 History Vit C/E/Zn/Coppr/Lutein/Zeaxan 1 each PO DAILY 03/29/23 05/16/24 History [Preservision Areds 2 Softgel] Acetaminophen Tab [Tylenol Tab] 1,000 mg PO DIRECTED PRN 05/14/24 05/16/24 History Allergies Allergy/AdvReac Type Severity Reaction Status Date / Time No Known Allergies Allergy Verified 05/16/24 07:10 Surgical - Exam Vital Signs Temp Pulse Resp BP Pulse Ox 97.2 F L 70 18 158/87 99 05/16/24 07:09 05/16/24 07:09 05/16/24 07:09 05/16/24 07:09 05/16/24 07:09
--- NOTE | 2024-05-16 07:59 | P.PCN ---
Date of Procedure: 05/16/24 Description of Procedure: PREOPERATIVE DIAGNOSIS: History of colon adenoma status post right hemicolectomy Colonoscopy screening POSTOPERATIVE DIAGNOSIS: History of colon adenoma status post right hemicolectomy Colonoscopy screening Sigmoid diverticulosis OPERATION: Colonoscopy to the ileocolic anastomosis SURGEON: Neeta Pearson MD. ANESTHESIA: MAC. INDICATIONS: The patient is a 73-year-old male who presents for colonoscopy screening after colon resection for large colon adenoma, 2022. Benefits and risks were described and informed consent was obtained. DESCRIPTION OF PROCEDURE: The patient had undergone GoLytely prep. The patient had been brought into the operating room and laid in the left lateral decubitus position. After adequate intravenous sedation, the rectum was examined with 2% lidocaine jelly. Prostate fossa unremarkable. External hemorrhoids were encountered. The rectal tone was within normal limits. No lesions were palpated in the rectal vault. An Olympus colonoscope was advanced until the cecum, ileocecal valve and appendiceal orifice were clearly viewed. The prep was good. Severe sigmoid diverticulosis was encountered. No colonic polyps were found. No evidence of focal colitis was found. Retroflexion of the scope demonstrated grade 2 internal hemorrhoids without active bleeding or inflammation. The colon was desufflated. The patient had tolerated the procedure well. Withdrawal time was over 6 minutes. FINDINGS: Aronchick preparation quality scale 2 (1-5) Severe sigmoid diverticulosis with tortuosity Internal hemorrhoids, grade 2 External prolapsed hemorrhoids, grade 2 Ileocolic anastomosis unremarkable No arteriovenous malformations. No adenomatous polyps. No focal colitis. RECOMMENDATIONS: Lower endoscopy in 1 year, 2024 Plan - Discharge Summary Discharge Rx Participant: No New Discharge Prescriptions: Continue Aspirin 81 mg PO HS Vit C/E/Zn/Coppr/Lutein/Zeaxan [Preservision Areds 2 Softgel] 1 each PO DAILY Acetaminophen Tab [Tylenol] 1,000 mg PO DIRECTED PRN PRN Reason: Pain Discharge Medication List Aspirin 81 mg PO HS 09/16/14 [History] Vit C/E/Zn/Coppr/Lutein/Zeaxan [Preservision Areds 2 Softgel] 1 each PO DAILY 03/29/23 [History] Acetaminophen Tab [Tylenol] 1,000 mg PO DIRECTED PRN 05/14/24 [History] Follow up Appointment(s)/Referral(s): Neeta Pearson MD [STAFF PHYSICIAN] - As Needed Patient Instructions/Handouts: Diverticulosis (DC), Diverticulosis Diet (GEN) Activity/Diet/Wound Care/Special Instructions: Repeat colonoscopy in 1 year, 2024 Discharge Disposition: HOME SELF-CARE
[2024-05-16 08:07] VITALS: BP 147/81; PULSE 63
== END 2024-05-16 08:55 | disposition home or self-care (01) ==
LOC: ORWHC2ENDO 06:46
PROVIDERS: ATTEND Surgery Plastic and Reconstructive Surgery
DX: Z12.11 Encounter for screening for malignant neoplasm of colon (principal); K57.30 Diverticulosis of large intestine without perforation or abscess without bleeding; K64.1 Second degree hemorrhoids; Z86.010 Personal history of colon polyps; Z90.49 Acquired absence of other specified parts of digestive tract; Z87.891 Personal history of nicotine dependence; Z79.82 Long term (current) use of aspirin; Z79.899 Other long term (current) drug therapy
CPT/HCPCS: 45378; J2704